=== PATIENT | male | born 1990 | race Caucasian/White ===

== ENCOUNTER 2018-06-13 17:17 | Emergency (ER) | payer OTHER ==
[~2018-06-13] VITALS: Ht 182.8 cm; Wt 103.0 kg
[2018-06-13] MEDS ORDERED: LEXAPRO5 M1 PO (17:29)
[2018-06-13] MEDS ORDERED: THE MEDICINE SH20 M1 PO (17:30)
[2018-06-13] MEDS ORDERED: FLONASE ALLERG9.9 ML NAS (17:40)
[2018-06-13] MEDS ORDERED: AMOXICILLIN500 M2 PO (17:40)
== END 2018-06-13 18:04 | disposition home or self-care (01) ==
LOC: ED 17:17
DX: J01.90 Acute sinusitis, unspecified (principal); Z79.899 Other long term (current) drug therapy